=== PATIENT | male | born 1970 | race Caucasian/White ===

== ENCOUNTER 2017-01-25 00:47 | Emergency (ER) | payer OTHER ==
[~2017-01-25] VITALS: Ht 182.9 cm; Wt 90.9 kg
[2017-01-25 00:50] VITALS: BP 137/94; PULSE 99; RESP 18; O2SAT 98
--- NOTE | 2017-01-25 00:55 | ED.REPORT ---
HPI-URI / Cough / Cold Date of Service Jan 25, 2017 ED Provider: Dr. Martin Pt is a 46 year old male with a hx of DE x2 presenting to the ED complaining of a non productive cough onset a couple days ago. Associated symptoms include lightheadedness and vomiting both from coughing, SOB, chest pain and chills. Denies fever, nausea or diarrhea. He denies any family history of asthma or emphysema. Pt is a current every day smoker. Nursing Notes Stated Complaint: BAD COUGH Chief Complaint: Respiratory Complaints Nursing Notes Reviewed: Yes Allergies: Coded Allergies: Penicillins (Verified Allergy, Unknown, 01/25/17) General Time Seen by MD: 00:55 Chief Complaint Cough, non-productive Hx Obtained From: Patient Arrived By: Walk-in Onset Occurred: 2 days ago Symptom Duration: Since onset Severity: Current: No pain currently Severity: Maximum: No pain Recent Healthcare: No recent doctor visit, No recent hospitalization Similar Sx Previous: No Past Medical History Past Medical History DE x2 Past Surgical History denies Smoking History Current Every Day Smoker Ambulatory Status Independent Review of Systems Constitutional: Reports: Chills, Denies: Fever Respiratory: Reports: Non-productive cough, Shortness of breath GI: Reports: Vomiting, Denies: Diarrhea, Nausea Neurologic: Reports: Lightheaded Complete sys rev & neg: except as marked. Physical Exam Initial Vital Signs Vital Signs (First) Date Time Temp Pulse Resp B/P Pulse Ox O2 Delivery O2 Flow Rate FiO2 01/25/17 00:50 36.5 99 18 137/94 98 Room Air Initial VS: Reviewed Head / Eyes: Atraumatic, Normocephalic, PERRL Cardiovascular: Regular rate & rhythm, Heart sounds normal, Intact distal pulses Abdomen / GI: Soft, Non-tender, No guarding, No rebound, No distention Extremities: Vascular intact, Neuro intact, No swelling, No tenderness Skin: Warm, Dry, No cyanosis Neurologic: Alert, Oriented, Nonfocal Psychiatric: Mood/affect normal, Behavior normal, Normal thought content General/Constitutional: Awake, Alert, No acute distress, Well appearing ENT: Atraumatic, Airway patent, Mucous membranes moist, Pharynx NL Respiratory / Chest: Atraumatic, No respiratory distress Wheezing / Retractions: Positive: Wheezing expiratory (Faint) Bilateral wheezes Interpretation & Diagnostics Lab Results Interpretation Result Diagram: 01/25/17 0141 Test 01/25/17 01:41 Hold Purple Top Tube Received (Received) D-Dimer < 0.50mg/L FEU (<0.50) Sodium Level 138mEq/L (134-144) Potassium Level 3.6mEq/L (3.5-5.2) Chloride Level 102mEq/L (97-108) Carbon Dioxide Level 21mmol/L (18-29) Blood Urea Nitrogen 13mg/dL (6-24) Creatinine 0.93mg/dL (0.76-1.27) Estimat Glomerular Filtration Rate 93mL/min (>59) Glucose Level 108mg/dL (60-99) Calcium Level 9.1mg/dL (8.5-10.1) Troponin T 0.010ug/L (0.0-0.011) Hold Taylor Top Tube Received (Received) ECG Interpretation Time: 01:31 Interpreted by: ED physician Normal ECG Interpretation: Normal rate (94), Normal sinus rhythm X-Ray Chest Interpretation Chest Xray Interpretation: No infiltrates no pneumothorax. Normal chest x ray. View: Portable, 1 view Interpretation / Wet Read by: Wet read ED physician Re-Eval/Medical Decision Med Decision/Clinical Course Cough with sputum production. Normal chest x-ray. Bronchospasm and bronchitis. PE ruled out with low risk, negative Wells score and negative d- dimer. Troponin drawn after 3 days of symptoms is normal. EKG was normal. Acute coronary syndrome ruled out. Zithromax, bronchodilators and a short course of steroids. I strongly recommend smoking cessation. Counseled Regarding: Diagnosis, Lab results, Need for follow-up, When/why to return to ED Discharge & Departure Impression: Primary Impression: Acute bronchitis Bronchitis organism: unspecified organism Qualified Code: J20.9 - Acute bronchitis, unspecified Disposition: Home Discharge Condition All VS Reviewed: Yes Condition: Improved Patient Instructions: Acute Bronchitis (ED) Additional Instructions: No dangerous cause for your symptoms was identified. Your chest x ray, heart blood tests and EKG looked normal. Do not drive tonight because you received sedating medications. Follow up with your primary care doctor in the next few days. Return to the ER if you develop any new or worsening symptoms. You need to stop smoking. In the meantime, take prednisone daily for 5 days. Take albuterol 2 puffs every 6 hours as prescribed for your shortness of breath. Take Z pack as prescribed. Referrals: Rudi Nova MD Attestation Portions of this note were transcribed by Mariama Guido. I, Dr. Martin personally performed the history, physical exam and medical decision-making; I reviewed and confirmed the accuracy of the information in the transcribed note. Signed by : Benoit Vicente, 01/25/2017. copies to: Rudi Nova MD, Todd P DO Jan 25, 2017 00:55 MARIAMA GUIDO Jan 25, 2017 00:59
[2017-01-25] MEDS ORDERED: HYDROcodone-APAP 5-325 mg Tablet PO ONE (01:05)
[2017-01-25] MEDS ORDERED: predniSONE 20 mg Tablet PO ONE (01:05)
[2017-01-25] MEDS ORDERED: Albuterol-Ipratropium 3 mL Inhalation Solution NEB ONE (01:05)
[2017-01-25 01:25] VITALS: BP 122/77; PULSE 95; RESP 24; O2SAT 96
[2017-01-25 02:23] LABS: TROPONIN T 0.01 ug/L (0.0-0.011)
[2017-01-25] MEDS ORDERED: _Proair 200 Puff/8.5 GM Inhaler INHALATION PRN (02:25)
[2017-01-25 02:47] VITALS: BP 129/79; PULSE 88; RESP 22; O2SAT 97
--- NOTE | 2017-01-25 07:52 | DRSVH ---
PROCEDURE: X-RAY CHEST, TWO VIEWS ([id number]) INDICATIONS: cough TECHNIQUE: 2 views of the chest were acquired. COMPARISON: None. FINDINGS: Surgical changes and devices: None. Lungs and pleura: No pleural effusions or pneumothorax. Lungs are clear. Mediastinum: Mediastinal contours are normal. Heart size is normal. Bones and chest wall: No suspicious bony abnormalities. Soft tissues appear unremarkable. IMPRESSION: No acute cardiopulmonary abnormality or source of cough. Bronchitis cannot be excluded. Dictated by: José Miguel Gonzalez M.D. on 01/25/2017 at 7:50 Approved by: José Miguel Gonzalez M.D. on 01/25/2017 at 7:51
== END 2017-01-25 02:48 | disposition home or self-care (01) ==
LOC: SED 00:47
DX: J20.9 Acute bronchitis, unspecified (principal); R42 Dizziness and giddiness; R11.10 Vomiting, unspecified; R06.02 Shortness of breath; R07.9 Chest pain, unspecified; R68.83 Chills (without fever); I25.2 Old myocardial infarction; F17.200 Nicotine dependence, unspecified, uncomplicated; Z88.0 Allergy status to penicillin
CPT/HCPCS: 36415; 71020; 80048; 84484; 85378; 93005; 94664; 99285; J7620